=== PATIENT | female | born 1970 | race American Indian/Alaskan Native ===

== ENCOUNTER 2017-03-22 10:08 | Outpatient (CLI) | payer OTHER ==
--- NOTE | 2017-03-22 11:04 | Mammography Report ---
Bilateral digital screen mammography with CAD. Comparison is made to the previous study on March 21, 2016. Findings: There is scattered bilateral fibroglandular density. In the upper outer quadrant of the right breast, there are increasing coarse calcifications which have benign radiographic features. No suspicious microcalcifications are seen. No masses or architectural distortion. Impression: No suspicious findings. BI-RADS code: 2. Recommendation: Annual screening.
[2017-03-22] MEDS ORDERED: ePHEDrine SULFATE ONE (11:56)
[2017-03-23] MEDS ORDERED: NACL ONE (07:57)
== END 2017-03-22 10:09 | disposition home or self-care (01) ==
LOC: MAMMO 10:08
PROVIDERS: ATTEND Family Medicine Adult Medicine
DX: Z12.31 Encounter for screening mammogram for malignant neoplasm of breast (principal)
CPT/HCPCS: 77067; G0202

== ENCOUNTER 2018-03-27 08:06 | Outpatient (CLI) | payer OTHER ==
[~2018-03-27 08:06] MED LIST: NACL 0.9% 250 ML ONE
--- NOTE | 2018-03-27 10:46 | Mammography Report ---
BILATERAL DIGITAL SCREENING MAMMOGRAM with CAD: 03/27/18 08:06:00 CLINICAL: Routine screening. COMPARISON:03/22/17 FINDINGS: There are scattered areas of fibroglandular density. No mass, architectural distortion or suspicious calcifications. IMPRESSION: No mammographic evidence of malignancy. BI-RADS CATEGORY: 2 -- Benign RECOMMENDATION: Routine mammographic screening in one year. COMMENT: Patient follow-up letters are generated by our [employer] application.
== END 2018-03-27 08:07 | disposition home or self-care (01) ==
LOC: MAMMO 08:06
PROVIDERS: ATTEND Family Medicine Adult Medicine
DX: Z12.31 Encounter for screening mammogram for malignant neoplasm of breast (principal)
CPT/HCPCS: 77067

== ENCOUNTER 2019-04-18 11:31 | Outpatient (CLI) | payer OTHER ==
--- NOTE | 2019-04-18 16:01 | Mammography Report ---
DIGITAL SCREENING MAMMOGRAM WITH CAD, 04/18/2019 INDICATION: Routine screening mammography. TECHNIQUE: Digital bilateral 2D mammography was obtained in the craniocaudal and mediolateral obliq ue projections. This examination was interpreted with the benefit of Computer-Aided Detection analysi s. COMPARISON: 03/27/2018 FINDINGS: Breast Density: There are scattered areas of fibroglandular density. There is no evidence of dominant mass, suspicious calcifications or architectural distortion in eithe r breast. Cluster of right benign calcifications. IMPRESSION: No mammographic evidence of malignancy. Follow up recommendation: Routine yearly BI-RADS Category 2: Benign. A "normal" or negative report should not discourage follow up or biopsy of a clinically significant f inding. A written summary of these findings will be mailed to the patient. The patient will be entered into a mammography reporting system which will generate a reminder letter for the patient's next appointmen t at the appropriate interval. The [employer] recommends yearly mammograms starting at age 40 and continuing as l cece as a woman is in good health. Breast MRI is recommended for women with an approximate 20-25% or greater lifetime risk of breast cancer, including women with a strong family history of breast or ova kolton cancer or who have been treated for Hodgkin's disease. Signer Name: Derrek Mcghee MD Signed: 04/18/2019 3:56 PM Workstation Name: [id number]
== END 2019-04-18 11:32 | disposition home or self-care (01) ==
LOC: MAMMO 11:31
PROVIDERS: ATTEND Family Medicine Adult Medicine
DX: Z12.31 Encounter for screening mammogram for malignant neoplasm of breast (principal)
CPT/HCPCS: 77067

== ENCOUNTER 2020-03-26 07:42 | Outpatient (CLI) | payer OTHER ==
--- NOTE | 2020-03-26 10:39 | Mammography Report ---
DIGITAL SCREENING MAMMOGRAM WITH CAD, 03/26/2020 INDICATION: Routine screening mammography. SCREENING MAMMOGRAM TECHNIQUE: Digital bilateral 2D mammography was obtained in the craniocaudal and mediolateral obliq ue projections. This examination was interpreted with the benefit of Computer-Aided Detection analysi s. COMPARISON: 04/18/2019 FINDINGS: Breast Density: There are scattered areas of fibroglandular density. There is no evidence of dominant mass, suspicious calcifications or architectural distortion in eithe r breast. Benign-appearing right calcifications are stable. IMPRESSION: No evidence of malignancy Follow up recommendation: Routine yearly BI-RADS Category 2: Benign. A "normal" or negative report should not discourage follow up or biopsy of a clinically significant f inding. A written summary of these findings will be mailed to the patient. The patient will be entered into a mammography reporting system which will generate a reminder letter for the patient's next appointmen t at the appropriate interval. The [employer] recommends yearly mammograms starting at age 40 and continuing as l cece as a woman is in good health. Breast MRI is recommended for women with an approximate 20-25% or greater lifetime risk of breast cancer, including women with a strong family history of breast or ova kolton cancer or who have been treated for Hodgkin's disease. Signer Name: Claude Anna MD Signed: 03/26/2020 10:35 AM Workstation Name: [id number]
== END 2020-03-26 07:43 | disposition home or self-care (01) ==
LOC: MAMMO 07:42
PROVIDERS: ATTEND Family Medicine Adult Medicine
DX: Z12.31 Encounter for screening mammogram for malignant neoplasm of breast (principal)
CPT/HCPCS: 77067

== ENCOUNTER 2021-03-29 10:51 | Outpatient (CLI) | payer OTHER ==
--- NOTE | 2021-03-29 12:01 | Mammography Report ---
DIGITAL SCREENING MAMMOGRAM WITH CAD, 03/29/2021 CLINICAL INFORMATION / INDICATION: Routine screening mammography. SCREENING MAMMOGRAM TECHNIQUE: Digital bilateral 2D mammography was obtained in the craniocaudal and mediolateral obliqu e projections. This examination was interpreted with the benefit of Computer-Aided Detection analysis . COMPARISON: 05/23/2013 through 03/26/2020. FINDINGS: Breast Density: There are scattered areas of fibroglandular density. No dominant mass, suspicious calcifications, or architectural distortion in either breast. There are a few benign calcifications in the right superior breast. IMPRESSION: No mammographic evidence of malignancy. Follow up recommendation: Routine yearly BI-RADS Category 2: Benign. A "normal" or negative report should not discourage follow up or biopsy of a clinically significant f inding. A written summary of these findings will be mailed to the patient. The patient will be entered into a mammography reporting system which will generate a reminder letter for the patient's next appointmen t at the appropriate interval. The [employer] recommends yearly mammograms starting at age 40 and continuing as l cece as a woman is in good health. Breast MRI is recommended for women with an approximate 20-25% or greater lifetime risk of breast cancer, including women with a strong family history of breast or ova kolton cancer or who have been treated for Hodgkin's disease. Signer Name: Jimbo Dobbs MD Signed: 03/29/2021 11:56 AM Workstation Name: [id number]
== END 2021-03-29 10:52 | disposition home or self-care (01) ==
LOC: MAMMO 10:51
PROVIDERS: ATTEND Family Medicine Adult Medicine
DX: Z12.31 Encounter for screening mammogram for malignant neoplasm of breast (principal); N64.89 Other specified disorders of breast
CPT/HCPCS: 77067